=== PATIENT | female | born 1965 | race African-American/Black ===

== ENCOUNTER 2017-11-25 01:05 | Emergency (ER) | payer SELFPAY ==
[~2017-11-25] VITALS: Ht 162.6 cm; Wt 85.0 kg
[2017-11-25 01:07] VITALS: BP 145/79
== END 2017-11-25 01:15 | disposition left against medical advice (07) ==
LOC: ER 01:05
DX: R10.10 Upper abdominal pain, unspecified (principal); Z53.21 Procedure and treatment not carried out due to patient leaving prior to being seen by health care provider